=== PATIENT | female | born 1980 | race Caucasian/White ===

== ENCOUNTER → 2019-07-21 | Day surgery (SDC) | payer BC ==
[~2019-07-21] MED LIST: Lactated Ringers 1,000 ML IV SCH; Lidocaine 1% w/EPINEPHrine 50 ML, Sodium Bicarbonate 5 MEQ in Sodium Chloride 0.9% 950 ML INJECT SCH; Lidocaine 1% with EPINEPHrine 1:100,000 50 ML MDV ONE; Midazolam 1 MG/ML 2 ML SDV ONE; Propofol 200 MG/20 ML SDV ONE; Sodium Chloride 0.9% 1,000 ML IV SCH; Sodium Chloride 0.9% 10 ML ONE; Sodium Tetradecyl Sulfate 1% 20 MG/2 ML SDV ONE; fentaNYL 100 MCG/2 ML SDV ONE
--- NOTE | 2019-07-22 07:43 | OR ---
DATE OF PROCEDURE: 07/21/2019 SURGEON: John Paul Townsend MD PROCEDURES: 1. Radiofrequency ablation of left greater saphenous vein. 2. Sclerotherapy left leg, multiple. 3. Compression wrap, left leg (40190). COMPLICATIONS: None. SEA FOAM KISS MAKER: None. ANESTHESIA: MAC. PREOPERATIVE DIAGNOSIS: Venous insufficiency with inflammation and pain. POSTOPERATIVE DIAGNOSIS: Venous insufficiency with inflammation and pain. RISKS: Risks, benefits, alternatives, and limitations including, but not limited to infection, bleeding, and DVT formation were explained to the patient, who wished to proceed. PROCEDURE IN DETAIL: The patient was placed in supine position. Left GSV was accessed at the level of the ankle. This was accessed using a 21-gauge needle in conjunction with 35,000th wire, then exchanged for a 7-[place] sheath. RFA probe was advanced 2 to 3 cm from the saphenofemoral junction. Tumescent fluid was injected in a 1-cm jacket around this. Direct pressure was deployed x2 proximally and distally, and x1 in all other segments. The sheath and device were then removed. Sclerotherapy was then performed on the left leg. There were 6 on the left. This was ranging 1 to 4 cm in size. This was always drawn back to ensure intravascular injection only and no more than 2 mL was used in any one location. Two-layer, two-stage compression wrapping was then performed in a distal proximal gradient. This was a [id number] confirmation. The patient tolerated the procedure well. John Paul Townsend MD /[id number]
== END | disposition home or self-care (01) ==
LOC: JP.SDS 08:04
PROVIDERS: ATTEND Surgery
DX: I87.2 Venous insufficiency (chronic) (peripheral) (principal); Z88.8 Allergy status to other drugs, medicaments and biological substances
CPT/HCPCS: 36471; 36475; 81025; J1642; J2250; J2704; J3010; J7030; J3490